=== PATIENT | female | born 1950 | race Caucasian/White ===

== ENCOUNTER 2018-09-09 11:26 | Emergency (ER) | payer MEDICARE, OTHER ==
[~2018-09-09] VITALS: Ht 157.5 cm; Wt 79.0 kg
[2018-09-09 11:36] VITALS: BP 105/63
[2018-09-09 12:57] LABS: ALANINE AMINOTRANSFERASE 29 U/L (12-78); ALBUMIN/GLOBULIN RATIO 0.5 (1.1-1.5); ALKALINE PHOSPHATASE 127 IU/L (46-116); ANION GAP 6 (8-16); ASPARTATE AMINO TRANSFERASE 52 U/L (10-37); BLOOD UREA NITROGEN 7 MG/DL (7-18); BUN/CREATININE RATIO 6.9 (6.6-38.0); CALCIUM 8.3 MG/DL (8.5-10.1); CHLORIDE 106 MMOL/L (99-107); CREATININE 1.01 MG/DL (0.40-0.90); GLUCOSE 125 MG/DL (70-104); POTASSIUM 3.6 MMOL/L (3.5-5.1); SODIUM 138 MMOL/L (135-145); TOTAL CARBON DIOXIDE 26.4 MMOL/L (24-32); TOTAL PROTEIN 6.2 G/DL (6.4-8.2); eGFR 55 ML/MIN
[2018-09-09] MEDS ORDERED: LACT10SO PO (14:35)
[2018-09-09] MEDS ORDERED: FURO40TA4 PO (14:35)
[2018-09-09] MEDS ORDERED: SPIR100T PO (14:35)
[2018-09-09 15:05] LABS: BASOPHILS % (AUTO) 0.4 % (0-1); EOSINOPHILS # (AUTO) 0.1 X10'3 (0-0.9); HEMATOCRIT 32.1 % (35.0-45.0); LYMPHOCYTES # (AUTO) 0.9 X10'3 (1.1-4.8); LYMPHOCYTES % (AUTO) 20.2 % (21-51); MEAN CORPUSCULAR HGB CONC 34.1 % (33.0-36.5); MEAN CORPUSCULAR VOLUME 105.5 FL (78-98); MEAN PLATELET VOLUME 8.1 FL (7.4-10.4); MONOCYTES # (AUTO) 0.4 X10'3 (0-0.9); MONOCYTES % (AUTO) 8.5 % (2-12); NEUTROPHILS # (AUTO) 3.2 X10'3 (1.8-7.7); NEUTROPHILS % (AUTO) 68.9 % (42-75); PLATELET COUNT 81 X10'3 (140-440); RED BLOOD COUNT 3.04 X10'6 (4.20-5.60); RED CELL DISTRIBUTION WIDTH 15.5 % (11.5-14.5); WHITE BLOOD COUNT 4.7 X10'3 (4.5-11.0)
== END 2018-09-09 15:30 | disposition home or self-care (01) ==
LOC: ER 11:27
DX: R60.0 Localized edema (principal); R26.2 Difficulty in walking, not elsewhere classified; M79.89 Other specified soft tissue disorders; E66.9 Obesity, unspecified; Z79.899 Other long term (current) drug therapy; Z87.19 Personal history of other diseases of the digestive system; Z59.0 Homelessness
CPT/HCPCS: 36415; 71045; 80053; 85025; 99285

== ENCOUNTER 2018-09-28 18:22 | Emergency (ER) | payer MEDICARE, OTHER ==
[~2018-09-28] VITALS: Ht 157.5 cm; Wt 75.0 kg
[~2018-09-28 18:22] MED LIST: FURO40TA4 PO; LACT10SO PO; SPIR100T PO
[2018-09-28 19:04] VITALS: BP 126/75
[2018-09-28] MEDS ORDERED: LIDOcaine 1% w/EPI 1:100,000 30ml vial (MDV) IJ ONE (20:25)
[2018-09-28] MEDS ORDERED: LIDOcaine 1.5% w/epinephrine 1:200,000 5ml ampul IJ ONE (20:25)
[2018-09-28 20:31] LABS: BASOPHILS % (AUTO) 0.3 % (0-1); EOSINOPHILS # (AUTO) 0.2 X10'3 (0-0.9); HEMOGLOBIN 12.9 g/dl (12.0-16.0); LYMPHOCYTES # (AUTO) 2.8 X10'3 (1.1-4.8); LYMPHOCYTES % (AUTO) 35.8 % (21-51); MEAN CORPUSCULAR HEMOGLOBIN 35.2 PG (27.0-31.0); MEAN CORPUSCULAR HGB CONC 33.9 % (33.0-36.5); MEAN CORPUSCULAR VOLUME 103.9 FL (78-98); MEAN PLATELET VOLUME 8.3 FL (7.4-10.4); MONOCYTES # (AUTO) 0.5 X10'3 (0-0.9); MONOCYTES % (AUTO) 6.1 % (2-12); NEUTROPHILS # (AUTO) 4.4 X10'3 (1.8-7.7); NEUTROPHILS % (AUTO) 55.8 % (42-75); PLATELET COUNT 106 X10'3 (140-440); RED BLOOD COUNT 3.66 X10'6 (4.20-5.60); RED CELL DISTRIBUTION WIDTH 15.1 % (11.5-14.5); WHITE BLOOD COUNT 7.9 X10'3 (4.5-11.0)
[2018-09-28 20:35] LABS: CLARITY,URINE CLOUDY (Clear); COLOR,URINE YELLOW (Yellow); GLUCOSE, URINE NEGATIVE (Neg); KETONES,URINE NEGATIVE (Neg); LEUKOCYTE ESTERASE ,URINE LARGE (Neg); NITRITES, URINE NEGATIVE (Neg); OCCULT BLOOD,URINE SMALL (Neg); PROTEIN,URINE NEGATIVE (Neg); UROBILINOGEN,URINE 0.2 E.U/dL (0.2-1.0)
[2018-09-28 20:42] LABS: UA COLLECTION TYPE VOIDED
[2018-09-28 20:48] LABS: INR 1.3 INR; PROTHROMBIN TIME 12.8 SECONDS (9.0-12.0)
[2018-09-28 20:48] LABS: BACTERIA,URINE 4+ /HPF (Neg); RBC,URINE NONE SEEN /HPF (0-2); SQUAMOUS EPITHELIAL CELL,UR MANY /LPF (FEW); WBC,URINE TNTC /HPF (0-4)
[2018-09-28 20:51] LABS: ALANINE AMINOTRANSFERASE 37 U/L (12-78); ALBUMIN 2.6 G/DL (3.4-5.0); ALBUMIN/GLOBULIN RATIO 0.5 (1.1-1.5); ALKALINE PHOSPHATASE 177 IU/L (46-116); ANION GAP 15 (8-16); ASPARTATE AMINO TRANSFERASE 74 U/L (10-37); BLOOD UREA NITROGEN 11 MG/DL (7-18); BUN/CREATININE RATIO 9.2 (6.6-38.0); CALCIUM 9.2 MG/DL (8.5-10.1); CHLORIDE 101 MMOL/L (99-107); GLUCOSE 86 MG/DL (70-104); POTASSIUM 3.5 MMOL/L (3.5-5.1); SODIUM 141 MMOL/L (135-145); TOTAL CARBON DIOXIDE 25.5 MMOL/L (24-32); TOTAL PROTEIN 7.5 G/DL (6.4-8.2); eGFR 45 ML/MIN
[2018-09-28] MEDS ORDERED: NITR100C6 PO (20:54)
[2018-09-29] MEDS ORDERED: PANT-47 PO (13:32)
== END 2018-09-28 21:33 | disposition home or self-care (01) ==
LOC: ER 18:23
DX: S01.01XA Laceration without foreign body of scalp, initial encounter (principal); N39.0 Urinary tract infection, site not specified; Z86.19 Personal history of other infectious and parasitic diseases; Z60.2 Problems related to living alone; Z59.0 Homelessness; Z79.899 Other long term (current) drug therapy; W01.198A Fall on same level from slipping, tripping and stumbling with subsequent striking against other object, initial encounter; Y93.89 Activity, other specified; Y92.89 Other specified places as the place of occurrence of the external cause; Y99.8 Other external cause status
CPT/HCPCS: 12001; 36415; 70450; 72125; 80053; 81001; 85025; 85610; 99285; J3490

== ENCOUNTER 2018-09-29 09:41 | Emergency (ER) | payer MEDICARE, OTHER ==
[~2018-09-29] VITALS: Ht 157.5 cm; Wt 75.0 kg
[~2018-09-29 09:41] MED LIST changes: +NITR100C6 PO
[2018-09-29] MEDS ORDERED: ondansetron/PF 4mg/2ml inj IV ONE (10:10)
[2018-09-29] MEDS ORDERED: normal saline 1000ML IV soln IVB ONE (10:10)
[2018-09-29] MEDS ORDERED: proCHLORperazine 10 MG/2 ml inj IV ONE (10:10)
[2018-09-29 11:00] LABS: ETHANOL 0.111 GM/DL (0.0-0.010)
[2018-09-29 11:31] LABS: ALANINE AMINOTRANSFERASE 38 U/L (12-78); ALBUMIN 2.7 G/DL (3.4-5.0); ALKALINE PHOSPHATASE 152 IU/L (46-116); ANION GAP 20 (8-16); ASPARTATE AMINO TRANSFERASE 80 U/L (10-37); BILIRUBIN,TOTAL 3.7 MG/DL (0.1-1.0); BLOOD UREA NITROGEN 13 MG/DL (7-18); BUN/CREATININE RATIO 9.6 (6.6-38.0); CALCIUM 9.3 MG/DL (8.5-10.1); CHLORIDE 98 MMOL/L (99-107); CREATININE 1.35 MG/DL (0.40-0.90); GLUCOSE 102 MG/DL (70-104); SODIUM 136 MMOL/L (135-145); TOTAL CARBON DIOXIDE 17.6 MMOL/L (24-32); eGFR 39 ML/MIN
[2018-09-29 11:37] LABS: ALBUMIN/GLOBULIN RATIO 0.5 (1.1-1.5); POTASSIUM 3.8 MMOL/L (3.5-5.1); TOTAL PROTEIN 7.7 G/DL (6.4-8.2)
[2018-09-29 11:42] LABS: INR 1.2 INR; PROTHROMBIN TIME 12.4 SECONDS (9.0-12.0)
[2018-09-29 12:22] LABS: BASOPHILS % (AUTO) 1.1 % (0-1); EOSINOPHILS % (AUTO) 0.3 % (0-6); HEMATOCRIT 34.1 % (35.0-45.0); HEMOGLOBIN 11.6 g/dl (12.0-16.0); LYMPHOCYTES % (AUTO) 15.4 % (21-51); MEAN CORPUSCULAR HEMOGLOBIN 35.1 PG (27.0-31.0); MEAN CORPUSCULAR HGB CONC 34.1 % (33.0-36.5); MEAN CORPUSCULAR VOLUME 103.1 FL (78-98); MONOCYTES % (AUTO) 10.4 % (2-12); NEUTROPHILS % (AUTO) 72.8 % (42-75); RED BLOOD COUNT 3.31 X10'6 (4.20-5.60)
[2018-09-29 12:37] LABS: WHITE BLOOD COUNT 4.2 X10'3 (4.5-11.0)
[2018-09-29 12:38] LABS: ANISOCYTOSIS 1+; LARGE PLATELETS FEW; LYMPHOCYTES # (AUTO) 0.6 X10'3 (1.1-4.8); MEAN PLATELET VOLUME 7.3 FL (7.4-10.4); MONOCYTES # (AUTO) 0.4 X10'3 (0-0.9); NEUTROPHILS # (AUTO) 3.1 X10'3 (1.8-7.7); PLATELET COUNT 77 X10'3 (140-440); PLATELET ESTIMATE DECREASED; POLYCHROMASIA FEW
[2018-09-29 12:39] LABS: TEAR DROP CELLS FEW
[2018-09-29 12:46] LABS: URINE AMPHETAMINE SCREEN POSITIVE (Neg); URINE BARBITUATE SCREEN NEGATIVE (Neg); URINE BENZODIAZEPINES SCREEN NEGATIVE (Neg); URINE CANNABINOID SCREEN NEGATIVE (Neg); URINE COCAINE SCREEN NEGATIVE (Neg); URINE METHADONE SCREEN NEGATIVE (Neg); URINE OPIATE SCREEN NEGATIVE (Neg); URINE PHENCYCLIDINE SCREEN NEGATIVE (Neg)
[2018-09-29] MEDS ORDERED: PANT-47 PO (13:32)
[2018-09-29 14:11] VITALS: BP 111/42
[2018-09-30] MEDS ORDERED: RISP0.5T3 PO (14:13)
[2018-09-30] MEDS ORDERED: MAGN400T6 PO (14:13)
[2018-09-30] MEDS ORDERED: RIFA550T PO (14:13)
[2018-09-30] MEDS ORDERED: GABA-532 PO (14:13)
[2018-09-30] MEDS ORDERED: TRAZ-218 PO (14:13)
[2018-09-30] MEDS ORDERED: CALC1TAB PO (14:13)
[2018-09-30] MEDS ORDERED: SERT25TA PO (14:13)
== END 2018-09-29 15:15 | disposition home or self-care (01) ==
LOC: ER 09:41
DX: R41.82 Altered mental status, unspecified (principal); F10.129 Alcohol abuse with intoxication, unspecified; F15.90 Other stimulant use, unspecified, uncomplicated; K92.1 Melena; F17.200 Nicotine dependence, unspecified, uncomplicated; Z86.19 Personal history of other infectious and parasitic diseases; Z60.2 Problems related to living alone; Z59.0 Homelessness; Z79.899 Other long term (current) drug therapy; Y90.0 Blood alcohol level of less than 20 mg/100 ml
CPT/HCPCS: 36415; 70450; 80053; 80305; 80320; 82140; 85025; 85610; 93005; 96361; 96374; 96375; 99285; J0780; J2405

== ENCOUNTER 2018-09-30 11:33 | Inpatient (IN) | payer MEDICARE, OTHER ==
[~2018-09-30] VITALS: Ht 157.5 cm; Wt 80.2 kg
[~2018-09-30 11:33] MED LIST changes: +PANT-47 PO
[2018-09-30] MEDS ORDERED: normal saline 1000ML IV soln IVB ONE ×2 (12:10→16:45)
[2018-09-30] MEDS ORDERED: LORazepam 2 mg/ml vial IV ONE ×2 (12:45→13:25)
[2018-09-30 12:55] LABS: ALANINE AMINOTRANSFERASE 36 U/L (12-78); ALBUMIN 2.3 G/DL (3.4-5.0); ALKALINE PHOSPHATASE 144 IU/L (46-116); ANION GAP 18 (8-16); ASPARTATE AMINO TRANSFERASE 75 U/L (10-37); BILIRUBIN,TOTAL 4.3 MG/DL (0.1-1.0); BLOOD UREA NITROGEN 9 MG/DL (7-18); BUN/CREATININE RATIO 6.8 (6.6-38.0); CALCIUM 9.1 MG/DL (8.5-10.1); CHLORIDE 99 MMOL/L (99-107); CREATINE KINASE 315 U/L (26-192); CREATININE 1.32 MG/DL (0.40-0.90); ETHANOL 0.018 GM/DL (0.0-0.010); GLUCOSE 123 MG/DL (70-104); LIPASE 189 U/L (73-393); MAGNESIUM 1.4 MG/DL (1.5-2.4); POTASSIUM 4.1 MMOL/L (3.5-5.1); SODIUM 136 MMOL/L (135-145); TOTAL CARBON DIOXIDE 18.7 MMOL/L (24-32); eGFR 40 ML/MIN
[2018-09-30 12:57] LABS: ALBUMIN/GLOBULIN RATIO 0.5 (1.1-1.5)
[2018-09-30] MEDS ORDERED: potassium Cl 20 mEq SR tablet PO PRN ×4 (13:25→18:55)
[2018-09-30] MEDS ORDERED: acetaminophen 325mg tablet PO PRN ×3 (13:25→18:55)
[2018-09-30] MEDS ORDERED: potassium Cl 40MEQ/NS 500ml 500 ML IV PRN ×2 (13:25)
[2018-09-30] MEDS ORDERED: ondansetron/PF 4mg/2ml inj IV PRN ×2 (13:25→18:55)
[2018-09-30] MEDS ORDERED: mag hydrox/Alum hydrox/simeth 30ml oral suspension PO PRN (13:25)
[2018-09-30] MEDS ORDERED: magnesium hydroxide 30ml (MOM) UD suspension PO PRN ×2 (13:25→18:55)
[2018-09-30 13:26] LABS: CLARITY,URINE CLOUDY (Clear); COLOR,URINE YELLOW (Yellow); GLUCOSE, URINE NEGATIVE (Neg); KETONES,URINE NEGATIVE (Neg); LEUKOCYTE ESTERASE ,URINE LARGE (Neg); NITRITES, URINE NEGATIVE (Neg); OCCULT BLOOD,URINE SMALL (Neg); PH,URINE 6.5 (4.8-8.0); PROTEIN,URINE NEGATIVE (Neg); UROBILINOGEN,URINE 0.2 E.U/dL (0.2-1.0)
[2018-09-30 13:27] LABS: UA COLLECTION TYPE STRAIGHT CATH
[2018-09-30] MEDS: magnesium 1gm/100ml D5W IVPB 100 ML IV SCH ×2 (13:27→14:38)
[2018-09-30] MEDS ORDERED: thiamine inj. 100 MG in normal saline 100ml IV soln 99 ML IV ONE (13:30)
[2018-09-30] MEDS ORDERED: LORazepam 1 MG tablet PO PRN (13:30)
[2018-09-30 13:37] LABS: WBC,URINE TNTC /HPF (0-4)
[2018-09-30 13:38] LABS: BACTERIA,URINE 4+ /HPF (Neg); RBC,URINE 0-2 /HPF (0-2); SQUAMOUS EPITHELIAL CELL,UR NONE SEEN /LPF (FEW); WBC CLUMPS,URINE FEW /HPF (NEGATIVE)
[2018-09-30 13:42] LABS: BASOPHILS % (AUTO) 0.7 % (0-1); EOSINOPHILS % (AUTO) 0.5 % (0-6); HEMATOCRIT 32.4 % (35.0-45.0); HEMOGLOBIN 11.1 g/dl (12.0-16.0); LYMPHOCYTES # (AUTO) 0.5 X10'3 (1.1-4.8); MEAN CORPUSCULAR HEMOGLOBIN 35.4 PG (27.0-31.0); MEAN CORPUSCULAR HGB CONC 34.4 % (33.0-36.5); MEAN CORPUSCULAR VOLUME 103.1 FL (78-98); MEAN PLATELET VOLUME 9.1 FL (7.4-10.4); MONOCYTES # (AUTO) 0.4 X10'3 (0-0.9); MONOCYTES % (AUTO) 9.4 % (2-12); NEUTROPHILS # (AUTO) 3.1 X10'3 (1.8-7.7); NEUTROPHILS % (AUTO) 77.4 % (42-75); RED BLOOD COUNT 3.14 X10'6 (4.20-5.60)
[2018-09-30 13:43] LABS: PLATELET COUNT 81 X10'3 (140-440)
[2018-09-30 13:43] LABS: URINE AMPHETAMINE SCREEN NEGATIVE (Neg); URINE BARBITUATE SCREEN NEGATIVE (Neg); URINE BENZODIAZEPINES SCREEN NEGATIVE (Neg); URINE CANNABINOID SCREEN NEGATIVE (Neg); URINE COCAINE SCREEN NEGATIVE (Neg); URINE METHADONE SCREEN NEGATIVE (Neg); URINE OPIATE SCREEN NEGATIVE (Neg); URINE PHENCYCLIDINE SCREEN NEGATIVE (Neg)
[2018-09-30] MEDS ORDERED: RISP0.5T3 PO (14:13)
[2018-09-30] MEDS ORDERED: GABA-532 PO (14:13)
[2018-09-30] MEDS ORDERED: CALC1TAB PO (14:13)
[2018-09-30] MEDS ORDERED: SERT25TA PO (14:13)
[2018-09-30] MEDS ORDERED: TRAZ-218 PO (14:13)
[2018-09-30] MEDS ORDERED: MAGN400T6 PO (14:13)
[2018-09-30] MEDS ORDERED: RIFA550T PO (14:13)
[2018-09-30] MEDS ORDERED: normal saline 1000ML IV soln IV ONE ×2 (14:20→14:50)
[2018-09-30 14:39] LABS: INR 1.4 INR; PARTIAL THROMBOPLASTIN TIME 31 SECONDS (22-32)
[2018-09-30] MEDS ORDERED: CefTRIAXone 2gm/D5W 50ml 50 ML IV ONE (15:30)
[2018-09-30] MEDS ORDERED: NORepinephrine 8mg/ 250ml NS 250 ML IV SCH (17:35)
[2018-09-30] MEDS: normal saline 1000ml 1,000 ML IV SCH (17:38)
[2018-09-30] MEDS ORDERED: morphine 4 MG/ML inj SYRINge IV PRN (18:55)
[2018-09-30] MEDS ORDERED: potassium Cl 40MEQ/250ML bag 250 ML IV PRN ×2 (18:55)
[2018-09-30] MEDS ORDERED: vancomycin/NS 1 GM ADD-VANTAGE 250 ML IV ONE (18:55)
[2018-09-30] MEDS ORDERED: K, MAG and/or Phos replacement - Verify level? MC PRN (18:55)
[2018-09-30] MEDS ORDERED: morphine 2 MG/ML inj. syringe IV PRN (18:55)
[2018-09-30] MEDS ORDERED: hydrocortisone sod succ/PF 100mg/2ml inj. IV SCH (19:10)
[2018-09-30] MEDS: lactulose 20gm/30ml cup PO SCH (19:13)
[2018-09-30] MEDS ORDERED: LORazepam 2 mg/ml vial IV PRN ×2 (19:25)
[2018-09-30] MEDS: rifaximin 550mg tablet PO SCH (20:00)
[2018-09-30] MEDS ORDERED: vancomycin/NS 1 GM ADD-VANTAGE 250 ML IV SCH (20:00)
[2018-09-30 20:40] VITALS: BP 148/67
[2018-09-30 21:00] VITALS: BP 136/62
[2018-09-30 21:06] LABS: OXYGEN SATURATION (MIXED VEN) 73.4 % (60-80); PO2 MIXED VENOUS (TEMP COR) 36.7 mmHg (35-46)
[2018-09-30 21:15] VITALS: BP 136/62
[2018-09-30] MEDS: gabapentin 300mg capsule PO SCH (21:26)
[2018-09-30] MEDS: hydrocortisone sod succ/PF 100mg/2ml inj. IV SCH (21:26)
[2018-09-30] MEDS: magnesium oxide 400mg tablet PO SCH (21:26)
[2018-09-30 21:30] VITALS: BP 132/54
[2018-09-30] MEDS: risperiDONE 0.5mg tablet PO SCH (21:54)
[2018-09-30 22:00] VITALS: BP 124/56
[2018-09-30 23:00] VITALS: BP 105/57
[2018-10-01] VITALS (24 sets, daily range): BP systolic 79–121; BP diastolic 45–66
[2018-10-01] MEDS: piperacillin/tazo 4.5gm/100ml 100 ML IV SCH ×3 (01:17→17:00)
[2018-10-01] MEDS: lactulose 20gm/30ml cup PO SCH ×3 (01:17→15:45)
[2018-10-01] MEDS: normal saline 1000ml 1,000 ML IV SCH ×3 (02:30→19:08)
[2018-10-01 03:26] LABS: INR 1.5 INR; PROTHROMBIN TIME 14.6 SECONDS (9.0-12.0)
[2018-10-01 03:33] LABS: ALANINE AMINOTRANSFERASE 30 U/L (12-78); ALBUMIN/GLOBULIN RATIO 0.5 (1.1-1.5); ALKALINE PHOSPHATASE 110 IU/L (46-116); AMYLASE 30 U/L (25-115); ANION GAP 5 (8-16); ASPARTATE AMINO TRANSFERASE 61 U/L (10-37); BILIRUBIN,TOTAL 3.7 MG/DL (0.1-1.0); BLOOD UREA NITROGEN 10 MG/DL (7-18); BUN/CREATININE RATIO 8.5 (6.6-38.0); CALCIUM 7.6 MG/DL (8.5-10.1); CHLORIDE 108 MMOL/L (99-107); CREATINE KINASE 216 U/L (26-192); CREATININE 1.18 MG/DL (0.40-0.90); GLUCOSE 152 MG/DL (70-104); LIPASE 133 U/L (73-393); MAGNESIUM 1.9 MG/DL (1.5-2.4); PHOSPHORUS 1.7 MG/DL (2.3-4.5); POTASSIUM 3.8 MMOL/L (3.5-5.1); SODIUM 140 MMOL/L (135-145); TOTAL CARBON DIOXIDE 27.1 MMOL/L (24-32); TOTAL PROTEIN 5.9 G/DL (6.4-8.2); eGFR 46 ML/MIN
[2018-10-01 04:17] LABS: BASOPHILS % (AUTO) 0.2 % (0-1); EOSINOPHILS % (AUTO) 0.1 % (0-6); HEMATOCRIT 29.9 % (35.0-45.0); HEMOGLOBIN 10.4 g/dl (12.0-16.0); LYMPHOCYTES # (AUTO) 0.5 X10'3 (1.1-4.8); LYMPHOCYTES % (AUTO) 11.8 % (21-51); MEAN CORPUSCULAR HEMOGLOBIN 35.7 PG (27.0-31.0); MEAN CORPUSCULAR HGB CONC 34.6 % (33.0-36.5); MONOCYTES # (AUTO) 0.1 X10'3 (0-0.9); MONOCYTES % (AUTO) 1.8 % (2-12); NEUTROPHILS # (AUTO) 3.4 X10'3 (1.8-7.7); NEUTROPHILS % (AUTO) 86.1 % (42-75); RED CELL DISTRIBUTION WIDTH 15.2 % (11.5-14.5); WHITE BLOOD COUNT 3.9 X10'3 (4.5-11.0)
[2018-10-01 04:36] LABS: MEAN PLATELET VOLUME 7.6 FL (7.4-10.4); PLATELET COUNT 61 X10'3 (140-440)
[2018-10-01] MEDS ORDERED: potassium phosphate inj 15 MMOL in dextrose 5%-water 150 ML IV SCH (04:45)
[2018-10-01] MEDS: hydrocortisone sod succ/PF 100mg/2ml inj. IV SCH ×2 (07:34→20:51)
[2018-10-01] MEDS: cefepime 1GM/NS ADD-VANTAGE 100 ML IV SCH ×2 (07:35→16:24)
[2018-10-01] MEDS: folic acid 1mg tablet PO SCH (07:36)
[2018-10-01] MEDS: multivitamins, therapeutics tablet PO SCH (07:36)
[2018-10-01] MEDS: sertraline 50mg tablet PO SCH (07:36)
[2018-10-01] MEDS: magnesium oxide 400mg tablet PO SCH ×2 (07:36→20:52)
[2018-10-01] MEDS: rifaximin 550mg tablet PO SCH ×2 (07:36→20:51)
[2018-10-01] MEDS: thiamine 100mg tablet PO SCH (07:36)
[2018-10-01] MEDS ORDERED: folic acid inj. 2 MG, thiamine inj. 100 MG, MVI, adult No.4 with vit. K 10 ML in dextro... IV SCH ×4 (08:00)
[2018-10-01] MEDS ORDERED: CefTRIAXone/D5W-Rocephin 1gm 50 ML IV SCH (08:00)
[2018-10-01] MEDS ORDERED: thiamine inj. 100 MG, magnesium sulf injection 2 GM, MVI, adult No.4 with vit. K 10 ML ... IV SCH ×4 (08:00)
[2018-10-01] MEDS ORDERED: enoxaparin 40mg/0.4ml syringe SQ SCH (08:00)
[2018-10-01] MEDS ORDERED: normal saline 500ml IV soln 1,000 ML IV ONE ×2 (08:30→12:05)
[2018-10-01] MEDS ORDERED: pneumococcal 23-VAL P-sac vacc 25 mcg/0.5ml vial IMVAC ONE (10:00)
[2018-10-01 14:04] LABS: C DIFF ANTIGEN NEGATIVE (NEGATIVE); C DIFF SPECIMEN=DIARRHEA? ACCEPTABLE; C DIFFICILE TOXINS A&B NEGATIVE (Neg)
[2018-10-01] MEDS ORDERED: vancomycin/NS 1 GM ADD-VANTAGE 250 ML IV SCH (20:00)
[2018-10-01] MEDS ORDERED: albumin (human) 25% 100ml IV 100 ML IV ONE ×2 (20:25→20:45)
[2018-10-01] MEDS: risperiDONE 0.5mg tablet PO SCH (20:52)
[2018-10-01] MEDS: gabapentin 300mg capsule PO SCH (20:52)
[2018-10-02] VITALS (18 sets, daily range): BP systolic 90–115; BP diastolic 41–61
[2018-10-02] MEDS: lactulose 20gm/30ml cup PO SCH ×4 (00:10→23:31)
[2018-10-02] MEDS: piperacillin/tazo 4.5gm/100ml 100 ML IV SCH ×2 (00:10→11:13)
[2018-10-02] MEDS: normal saline 1000ml 1,000 ML IV SCH ×4 (00:11→15:36)
[2018-10-02] MEDS: cefepime 1GM/NS ADD-VANTAGE 100 ML IV SCH ×2 (00:48→08:04)
[2018-10-02 02:35] LABS: BASOPHILS % (AUTO) 0.5 % (0-1); EOSINOPHILS % (AUTO) 0.7 % (0-6); HEMATOCRIT 26.3 % (35.0-45.0); HEMOGLOBIN 9.1 g/dl (12.0-16.0); LYMPHOCYTES # (AUTO) 0.4 X10'3 (1.1-4.8); LYMPHOCYTES % (AUTO) 7.7 % (21-51); MEAN CORPUSCULAR HEMOGLOBIN 35.7 PG (27.0-31.0); MEAN CORPUSCULAR HGB CONC 34.4 % (33.0-36.5); MEAN CORPUSCULAR VOLUME 103.6 FL (78-98); MEAN PLATELET VOLUME 8.1 FL (7.4-10.4); MONOCYTES # (AUTO) 0.2 X10'3 (0-0.9); MONOCYTES % (AUTO) 3.3 % (2-12); NEUTROPHILS # (AUTO) 4.9 X10'3 (1.8-7.7); NEUTROPHILS % (AUTO) 87.8 % (42-75); RED BLOOD COUNT 2.54 X10'6 (4.20-5.60); RED CELL DISTRIBUTION WIDTH 15.2 % (11.5-14.5); WHITE BLOOD COUNT 5.6 X10'3 (4.5-11.0)
[2018-10-02 02:53] LABS: INR 1.6 INR; PROTHROMBIN TIME 16.2 SECONDS (9.0-12.0)
[2018-10-02 02:54] LABS: ALANINE AMINOTRANSFERASE 24 U/L (12-78); ALBUMIN 2.5 G/DL (3.4-5.0); ALBUMIN/GLOBULIN RATIO 0.7 (1.1-1.5); ALKALINE PHOSPHATASE 99 IU/L (46-116); AMYLASE 24 U/L (25-115); ANION GAP 10 (8-16); ASPARTATE AMINO TRANSFERASE 42 U/L (10-37); BILIRUBIN,TOTAL 2.5 MG/DL (0.1-1.0); BLOOD UREA NITROGEN 9 MG/DL (7-18); BUN/CREATININE RATIO 7.3 (6.6-38.0); CALCIUM 7.4 MG/DL (8.5-10.1); CHLORIDE 109 MMOL/L (99-107); CREATINE KINASE 98 U/L (26-192); CREATININE 1.23 MG/DL (0.40-0.90); GLUCOSE 130 MG/DL (70-104); LIPASE 118 U/L (73-393); MAGNESIUM 1.7 MG/DL (1.5-2.4); POTASSIUM 3.5 MMOL/L (3.5-5.1); SODIUM 141 MMOL/L (135-145); eGFR 44 ML/MIN
[2018-10-02 03:48] LABS: PLATELET COUNT 50 X10'3 (140-440)
[2018-10-02] MEDS: folic acid 1mg tablet PO SCH (08:02)
[2018-10-02] MEDS: thiamine 100mg tablet PO SCH (08:03)
[2018-10-02] MEDS: rifaximin 550mg tablet PO SCH ×2 (08:03→20:25)
[2018-10-02] MEDS: sertraline 50mg tablet PO SCH (08:03)
[2018-10-02] MEDS: multivitamins, therapeutics tablet PO SCH (08:03)
[2018-10-02] MEDS: magnesium oxide 400mg tablet PO SCH ×2 (08:03→19:56)
[2018-10-02] MEDS: hydrocortisone sod succ/PF 100mg/2ml inj. IV SCH ×2 (08:04→19:56)
[2018-10-02] MEDS: gabapentin 300mg capsule PO SCH (20:01)
[2018-10-02] MEDS: nitrofurantoin macrocrystal 100mg capsule PO SCH (20:25)
[2018-10-02] MEDS: risperiDONE 0.5mg tablet PO SCH (20:25)
[2018-10-03] MEDS: normal saline 1000ml 1,000 ML IV SCH ×5 (01:25→23:33)
[2018-10-03 03:00] VITALS: BP 112/54
[2018-10-03 05:59] LABS: BASOPHILS % (AUTO) 0.2 % (0-1); EOSINOPHILS % (AUTO) 0.6 % (0-6); HEMATOCRIT 28.4 % (35.0-45.0); HEMOGLOBIN 9.5 g/dl (12.0-16.0); LYMPHOCYTES # (AUTO) 0.5 X10'3 (1.1-4.8); LYMPHOCYTES % (AUTO) 9.3 % (21-51); MEAN CORPUSCULAR HEMOGLOBIN 35.3 PG (27.0-31.0); MEAN CORPUSCULAR HGB CONC 33.3 % (33.0-36.5); MEAN CORPUSCULAR VOLUME 105.9 FL (78-98); MEAN PLATELET VOLUME 8.2 FL (7.4-10.4); MONOCYTES # (AUTO) 0.1 X10'3 (0-0.9); MONOCYTES % (AUTO) 2.6 % (2-12); NEUTROPHILS # (AUTO) 4.3 X10'3 (1.8-7.7); NEUTROPHILS % (AUTO) 87.3 % (42-75); RED BLOOD COUNT 2.69 X10'6 (4.20-5.60); RED CELL DISTRIBUTION WIDTH 15.8 % (11.5-14.5); WHITE BLOOD COUNT 4.9 X10'3 (4.5-11.0)
[2018-10-03 06:00] VITALS: BP 109/53
[2018-10-03 06:07] LABS: PLATELET COUNT 52 X10'3 (140-440)
[2018-10-03 06:18] LABS: INR 1.6 INR; PROTHROMBIN TIME 16.2 SECONDS (9.0-12.0)
[2018-10-03 06:35] LABS: ALANINE AMINOTRANSFERASE 24 U/L (12-78); ALBUMIN 2.2 G/DL (3.4-5.0); ALBUMIN/GLOBULIN RATIO 0.6 (1.1-1.5); ALKALINE PHOSPHATASE 111 IU/L (46-116); AMYLASE 27 U/L (25-115); ANION GAP 9 (8-16); ASPARTATE AMINO TRANSFERASE 36 U/L (10-37); BILIRUBIN,TOTAL 1.6 MG/DL (0.1-1.0); BLOOD UREA NITROGEN 9 MG/DL (7-18); BUN/CREATININE RATIO 7.2 (6.6-38.0); CALCIUM 7.7 MG/DL (8.5-10.1); CHLORIDE 113 MMOL/L (99-107); CREATINE KINASE 54 U/L (26-192); CREATININE 1.25 MG/DL (0.40-0.90); GLUCOSE 122 MG/DL (70-104); LIPASE 148 U/L (73-393); MAGNESIUM 1.7 MG/DL (1.5-2.4); POTASSIUM 3.7 MMOL/L (3.5-5.1); SODIUM 143 MMOL/L (135-145); TOTAL CARBON DIOXIDE 21.3 MMOL/L (24-32); TOTAL PROTEIN 5.7 G/DL (6.4-8.2); eGFR 43 ML/MIN
[2018-10-03] MEDS: thiamine 100mg tablet PO SCH (07:13)
[2018-10-03] MEDS: sertraline 50mg tablet PO SCH (07:13)
[2018-10-03] MEDS: lactulose 20gm/30ml cup PO SCH ×3 (07:13→20:36)
[2018-10-03] MEDS: folic acid 1mg tablet PO SCH (07:14)
[2018-10-03] MEDS: hydrocortisone sod succ/PF 100mg/2ml inj. IV SCH ×2 (07:14→20:32)
[2018-10-03] MEDS: rifaximin 550mg tablet PO SCH ×2 (07:14→20:35)
[2018-10-03] MEDS: magnesium oxide 400mg tablet PO SCH ×2 (07:14→20:33)
[2018-10-03] MEDS: multivitamins, therapeutics tablet PO SCH (07:14)
[2018-10-03 11:00] VITALS: BP 96/45
[2018-10-03 15:00] VITALS: BP 104/50
[2018-10-03 19:00] VITALS: BP 119/57
[2018-10-03] MEDS ORDERED: VANCOMYCIN LEVEL IV ONE (19:30)
[2018-10-03] MEDS: nitrofurantoin macrocrystal 100mg capsule PO SCH (20:33)
[2018-10-03] MEDS: lactobacillus rhamnosus 10,000 MMU CELLS/CAPSULE PO SCH (20:34)
[2018-10-03] MEDS: risperiDONE 0.5mg tablet PO SCH (20:34)
[2018-10-03] MEDS: gabapentin 300mg capsule PO SCH (20:34)
[2018-10-03 23:00] VITALS: BP 107/49
[2018-10-04 02:00] VITALS: BP 118/52
[2018-10-04 04:54] LABS: BASOPHILS % (AUTO) 0 % (0-1); EOSINOPHILS % (AUTO) 0 % (0-6); HEMATOCRIT 29.5 % (35.0-45.0); HEMOGLOBIN 9.9 g/dl (12.0-16.0); LYMPHOCYTES # (AUTO) 0.5 X10'3 (1.1-4.8); LYMPHOCYTES % (AUTO) 10.8 % (21-51); MEAN CORPUSCULAR HEMOGLOBIN 35.8 PG (27.0-31.0); MEAN CORPUSCULAR HGB CONC 33.6 % (33.0-36.5); MEAN CORPUSCULAR VOLUME 106.3 FL (78-98); MEAN PLATELET VOLUME 8.8 FL (7.4-10.4); MONOCYTES # (AUTO) 0.2 X10'3 (0-0.9); MONOCYTES % (AUTO) 3.5 % (2-12); NEUTROPHILS # (AUTO) 4.3 X10'3 (1.8-7.7); NEUTROPHILS % (AUTO) 85.7 % (42-75); RED BLOOD COUNT 2.78 X10'6 (4.20-5.60); RED CELL DISTRIBUTION WIDTH 15.5 % (11.5-14.5); WHITE BLOOD COUNT 5.1 X10'3 (4.5-11.0)
[2018-10-04 05:36] LABS: ALANINE AMINOTRANSFERASE 28 U/L (12-78); ALBUMIN 2.2 G/DL (3.4-5.0); ALBUMIN/GLOBULIN RATIO 0.6 (1.1-1.5); ALKALINE PHOSPHATASE 138 IU/L (46-116); AMYLASE 37 U/L (25-115); ANION GAP 8 (8-16); ASPARTATE AMINO TRANSFERASE 36 U/L (10-37); BILIRUBIN,TOTAL 1.4 MG/DL (0.1-1.0); BLOOD UREA NITROGEN 15 MG/DL (7-18); BUN/CREATININE RATIO 14.3 (6.6-38.0); CALCIUM 7.9 MG/DL (8.5-10.1); CHLORIDE 113 MMOL/L (99-107); CREATININE 1.05 MG/DL (0.40-0.90); GLUCOSE 124 MG/DL (70-104); LIPASE 192 U/L (73-393); MAGNESIUM 1.7 MG/DL (1.5-2.4); PHOSPHORUS 1.9 MG/DL (2.3-4.5); POTASSIUM 3.6 MMOL/L (3.5-5.1); SODIUM 143 MMOL/L (135-145); TOTAL CARBON DIOXIDE 21.9 MMOL/L (24-32); TOTAL PROTEIN 5.7 G/DL (6.4-8.2); eGFR 52 ML/MIN
[2018-10-04 05:39] LABS: INR 1.6 INR; PROTHROMBIN TIME 15.9 SECONDS (9.0-12.0)
[2018-10-04 06:01] LABS: PLATELET COUNT 52 X10'3 (140-440)
[2018-10-04] MEDS: lactobacillus rhamnosus 10,000 MMU CELLS/CAPSULE PO SCH (09:17)
[2018-10-04] MEDS: sertraline 50mg tablet PO SCH (09:17)
[2018-10-04] MEDS: magnesium oxide 400mg tablet PO SCH (09:17)
[2018-10-04] MEDS: thiamine 100mg tablet PO SCH (09:17)
[2018-10-04] MEDS: multivitamins, therapeutics tablet PO SCH (09:17)
[2018-10-04] MEDS: folic acid 1mg tablet PO SCH (09:18)
[2018-10-04] MEDS: lactulose 20gm/30ml cup PO SCH (09:18)
[2018-10-04] MEDS: rifaximin 550mg tablet PO SCH (09:18)
[2018-10-04] MEDS: hydrocortisone sod succ/PF 100mg/2ml inj. IV SCH (09:19)
[2018-10-04] MEDS ORDERED: MULT-1179 PO (11:44)
[2018-10-04] MEDS ORDERED: RISP0.5T3 PO (11:44)
[2018-10-04] MEDS ORDERED: SERT25TA PO (11:44)
[2018-10-04] MEDS ORDERED: THI100T PO (11:44)
[2018-10-04] MEDS ORDERED: GABA-532 PO (11:44)
[2018-10-04] MEDS ORDERED: FOLI1TAB16 PO (11:44)
[2018-10-04] MEDS ORDERED: LACT10SO PO (11:44)
[2018-10-04] MEDS ORDERED: CALC1TAB PO (11:44)
[2018-10-04] MEDS ORDERED: RIFA550T PO (11:44)
[2018-10-04] MEDS ORDERED: MAGN400T6 PO (11:44)
== END 2018-10-04 16:20 | disposition home or self-care (01) | DRG 871 ==
LOC: ER 11:33 → ED HOLD 13:21 → EDBEDREQ 14:08 → CANBEDREQ 17:36 → ICU 2S 20:10 → PCU 3S 10-02 15:08
PROVIDERS: ADMIT Internal Medicine; ATTEND Family Medicine
PROC: 02HV33Z Insertion of Infusion Device into Superior Vena Cava, Percutaneous Approach (ICD-10-PCS; 2018-09-30)
PROC: B548ZZA Ultrasonography of Superior Vena Cava, Guidance (ICD-10-PCS; 2018-09-30)
PROC: 0HQ0XZZ Repair Scalp Skin, External Approach (ICD-10-PCS; 2018-09-30)
PROC: 3E02340 Introduction of Influenza Vaccine into Muscle, Percutaneous Approach (ICD-10-PCS; principal; 2018-10-01)
PROC: 3E0234Z Introduction of Serum, Toxoid and Vaccine into Muscle, Percutaneous Approach (ICD-10-PCS; 2018-10-01)
DX: A41.9 Sepsis, unspecified organism (principal); G93.41 Metabolic encephalopathy; F10.239 Alcohol dependence with withdrawal, unspecified; N39.0 Urinary tract infection, site not specified; N17.9 Acute kidney failure, unspecified; M62.82 Rhabdomyolysis; E87.2 Acidosis; R65.20 Severe sepsis without septic shock; E83.42 Hypomagnesemia; K74.60 Unspecified cirrhosis of liver; D64.9 Anemia, unspecified; D69.6 Thrombocytopenia, unspecified; E86.0 Dehydration; F15.90 Other stimulant use, unspecified, uncomplicated; Z60.2 Problems related to living alone; S01.01XA Laceration without foreign body of scalp, initial encounter; F32.9 Major depressive disorder, single episode, unspecified; B95.2 Enterococcus as the cause of diseases classified elsewhere; X58.XXXA Exposure to other specified factors, initial encounter; B96.89 Other specified bacterial agents as the cause of diseases classified elsewhere; I95.9 Hypotension, unspecified; B19.20 Unspecified viral hepatitis C without hepatic coma; K70.10 Alcoholic hepatitis without ascites; K72.90 Hepatic failure, unspecified without coma; Z59.0 Homelessness; Z79.899 Other long term (current) drug therapy; Z23 Encounter for immunization; Y93.89 Activity, other specified; Y92.89 Other specified places as the place of occurrence of the external cause; Y99.8 Other external cause status
CPT/HCPCS: 36415; 70450; 71045; 80053; 80305; 80320; 81001; 82140; 82150; 82550; 82810; 82948; 83605; 83690; 83735; 84100; 84145; 85025; 85610; 85730; 87040; 87070; 87077; 87088; 87186; 87324; 87449; 93005; 96361; 96374; 97110; 97116; 97162; 97530; 99291; G0378; J0692; J0696; J1720; J2060; J2270; J2543; J3370; J3411; J3475; J7030; J7060; P9047